=== PATIENT | female | born 1980 | race Two or more races ===

== ENCOUNTER 2017-01-27 00:07 | Emergency (ER) | payer OTHER ==
[~2017-01-27] VITALS: Ht 149.9 cm; Wt 55.8 kg
[2017-01-27] MEDS ORDERED: predniSONE 20 MG TABLET ONE (00:19)
[2017-01-27] MEDS ORDERED: EPINEPHRINE (1:1000) 1 MG/ML AMPUL ONE (00:19)
[2017-01-27] MEDS ORDERED: predniSONE 10 MG TABLET PO ONE (00:30)
[2017-01-27] MEDS ORDERED: EPINEPHRINE (1:1000) MDV 30 MG/30ML VIAL SUBCUT ONE (00:30)
[2017-01-27 01:21] VITALS: BP 123/75
== END 2017-01-27 01:22 | disposition home or self-care (01) ==
LOC: ER 00:09
DX: T78.1XXA Other adverse food reactions, not elsewhere classified, initial encounter (principal); T78.49XA Other allergy, initial encounter; L27.2 Dermatitis due to ingested food; Z88.6 Allergy status to analgesic agent; Y92.89 Other specified places as the place of occurrence of the external cause
CPT/HCPCS: 96372; 99283; A4606; J0171; J7512; Z7610